=== PATIENT | male | born 2000 | race Two or more races ===

== ENCOUNTER 2021-06-01 20:36 | Inpatient (IN) ==
[2021-06-01] MEDS ORDERED: SODIUM CHLORIDE 0.9% 1000ML 1,000 ML IV STA (21:16)
[2021-06-01] MEDS ORDERED: ONDANSETRON INJ 2 MG/ML 2 ML VIAL IV STA (21:16)
[2021-06-01] MEDS ORDERED: MoRPHine SULFATE 4 MG/ML 1 ML CARP\\VIAL IV STA ×2 (21:16→23:54)
[2021-06-01 21:26] LABS: Basophils # (auto) 0.03 K/uL (0-0.2); Basophils % (auto) 0.3 %; Eosinophils # (auto) 0.43 K/uL (0-0.5); Eosinophils % (auto) 4.8 %; Hematocrit (blood only) 42.4 % (42-52); Immature Granulocytes # (auto) 0.01 K/uL (0.00-0.02); Immature Granulocytes % (auto) 0.1 %; Lymphocytes # (auto) 1.47 K/uL (1.2-3.4); Lymphocytes % (auto) 16.5 %; Mean Corpuscular Hemoglobin 29.4 pg (25-34); Mean Corpuscular Volume 88.9 fL (80-100); Mean Platelet Volume 10.1 fL (7.4-10.4); Monocytes # (auto) 0.99 K/uL (0.11-0.59); Monocytes % (auto) 11.1 %; Neutrophils % (auto) 67.2 %; Platelet Count 321 K/uL (130-400); RDW Coefficient of Variation 13.1 % (11.5-14.5); RDW Standard Deviation 42.6 fL (36.4-46.3); Red Blood Count 4.77 M/uL (4.7-6.1); White Blood Count 8.93 K/uL (4.8-10.8)
--- NOTE | 2021-06-01 21:35 | Emergency Department Note ---
History of Present Illness General Chief complaint: Abdominal Pain Stated complaint: SEVERE ABDOMINAL PAIN ON RIGHT SIDE Time Seen by Provider: 06/01/21 20:49 History of Present Illness Maximum Pain Intensity: 9 20-year-old male who presents to emergency department with complaint of evolving abdominal pain since approximately 10 AM this morning. The patient reports generalized abdominal cramping that has now moved to the right lower quadrant region. The patient reports that he has to bend over because of the pain. He also admits pain with ambulation. Denies any significant pain radiating into the right lower back region, testicle or leg. Patient denies history of inflammatory bowel disease. He does report a history of pancreatic cancer as a child, but does have regular follow-up CT imaging when [place]. The patient currently rates his discomfort a 9 out of 10. He denies any bloody or mucus stools, constipation or diarrhea. He also denies any d ecreased urine output, darkened or bloody urine. Home Medications Medication Instructions Recorded Confirmed Type ibuprofen 200 mg tablet 400 mg PO DIRECTED PRN 06/01/21 06/01/21 History Allergies Allergy/AdvReac Type Severity Reaction Status Date / Time No Known Allergies Allergy Verified 06/01/21 21:14 Past Med/Surg History Medical History Pancreatic cancer Surgical History No significant past surgical history Social History (Updated 06/01/21 @ 21:33 by Deonte Millan) Smoking Status: Current every day smoker marital status: Single current occupational status: student Feels Safe at Home: Yes Review of Systems 10 system review was performed and was negative except for pertinent positives and negatives as indicated in history of present illness Physical Exam Vital Signs Vital Signs - 24 hr 06/01/21 20:43 06/01/21 21:30 Temperature 37.0 C Temperature Source Temporal Artery Scan Pulse Rate 88 Respiratory Rate 20 Respiratory Effort / Characteristics Non-Labored Spontaneous Respiratory Depth Normal Normal Blood Pressure 146/79 H Blood Pressure Mean 101 Pulse Oximetry 97 Oxygen Delivery Method Room Air Sepsis New/Unexplained Change in Mental Status N/A Sepsis Action Taken by Nursing No Action Required CONSTITUTIONAL: Healthy and well nourished. Alert and oriented X 3. Patient appears in mild discomfort. She does not appear toxic. HEENT: No scleral icterus or conjunctival injection/pallor. RESPIRATORY: Clear to auscultation bilaterally with no wheezing, crackles, rhonchi or stridor. CARDIOVASCULAR: Regular rate and rhythm with no murmurs, rubs or gallops. GASTROINTESTINAL: Bowel sounds present in all quadrants. Patient has a positive McBurney's point tenderness and mild Rovsing sign. Negative CVA tenderness. No abdominal rigidity, guarding or rebound. MUSCULOSKELETAL: Full range of motion of all joints without discomfort. INTEGUMENTARY: No rash or other significant dermatologic conditions noted. HEMATOLOGIC: No ecchymosis or petechiae. PSYCHIATRIC: Positive affect. NEUROLOGIC: No focal neurologic deficits noted. Course Course Patient history and physical exam were performed. Nurses notes were reviewed. Vital signs were reviewed, showing a mildly elevated blood pressure. IV access was established, and labs were drawn. The patient was hydrated with a liter of normal saline, and administered IV morphine and Zofran for pain. Review of labs shows a normal CBC, CMP, lipase and urinalysis. CT with IV contrast of the abdomen and pelvis was completed, however radiologist report was delayed. Official radiologist report is pending. Patient care was transferred to Yuli Chowdhury PA-C at change of shift. Please see her dictation for further treatment and final disposition. Administered Medications Discontinued Medications Sodium Chloride (Nss 1000ml) 1,000 mls @ 999 mls/hr IV .Q1H1M STA Stop: 06/01/21 22:16 Last Infusion: 06/01/21 22:15 Dose: 0 mls/hr Documented by: [id number] Admin: 06/01/21 21:30 Dose: 999 mls/hr Documented by: [id number] Ioversol (Optiray 320 100ml) 94 ml IV ONCE ONE Stop: 06/01/21 22:07 Last Admin: 06/01/21 22:06 Dose: 1 ml Documented by: [id number] Morphine Sulfate (Morphine Sulfate 4 Mg/Ml 1 Ml Carp\Vial) 4 mg IV NOW STA Stop: 06/01/21 21:17 Last Admin: 06/01/21 21:29 Dose: 4 mg Documented by: [id number] Morphine Sulfate (Morphine Sulfate 4 Mg/Ml 1 Ml Carp\Vial) 4 mg IV NOW STA Stop: 06/01/21 23:55 Last Admin: 06/02/21 00:08 Dose: 4 mg Documented by: [id number] Ondansetron HCl (Ondansetron Inj 2 Mg/Ml 2 Ml Vial) 4 mg IV NOW STA Stop: 06/01/21 21:17 Last Admin: 06/01/21 21:30 Dose: 4 mg Documented by: [id number] Medical Decision Making Medical Records Attestation: I reviewed the patient's medical records. Home Medications Current Medication List: was personally reviewed by me Laboratory Data Attestation: I reviewed the patient's lab results. Result diagrams: 06/01/21 21:15 06/01/21 21:15 Lab Results 06/01/21 06/01/21 06/01/21 Range/Units 21:15 21:15 21:15 WBC 8.93 (4.8-10.8) K/uL RBC 4.77 (4.7-6.1) M/uL Hgb 14.0 (14.0-18.0) g/dL Hct 42.4 (42-52) % MCV 88.9 (80-100) fL MCH 29.4 (25-34) pg MCHC 33.0 (32-36) g/dL RDW Std Deviation 42.6 (36.4-46.3) fL RDW Coeff of Kaya 13.1 (11.5-14.5) % Plt Count 321 (130-400) K/uL MPV 10.1 (7.4-10.4) fL Immature Gran % (Auto) 0.1 % Neut % (Auto) 67.2 % Lymph % (Auto) 16.5 % [place] % (Auto) 11.1 % Eos % (Auto) 4.8 % Baso % (Auto) 0.3 % Neut # (Auto) 6.00 (1.4-6.5) K/uL Lymph # (Auto) 1.47 (1.2-3.4) K/uL [place] # (Auto) 0.99 H (0.11-0.59) K/uL Eos # (Auto) 0.43 (0-0.5) K/uL Baso # (Auto) 0.03 (0-0.2) K/uL Immature Gran # (Auto) 0.01 (0.00-0.02) K/uL Sodium 138 (136-145) mmol/L Potassium 4.3 (3.5-5.1) mmol/L Chloride 103 (98-107) mmol/L Carbon Dioxide 26 (21-32) mmol/L Anion Gap 9 (3-11) BUN 11 (6-23) mg/dl Creatinine 0.79 (0.6-1.4) mg/dl Est Cr Clr Drug Dosing 137.2 ml/min Est GFR ( Amer) 148.8 ml/min Est GFR (Non-Af Amer) 128.4 ml/min BUN/Creatinine Ratio 13.9 (10-20) Glucose 87 (70-99(Fasting)) mg/dl Calcium 9.9 (8.5-10.1) mg/dl Total Bilirubin 0.5 (0.2-1.0) mg/dl AST 16 (13-39) U/L ALT 20 (7-52) U/L Alkaline Phosphatase 90 (34-104) U/L Total Protein 7.6 (6.0-8.3) gm/dl Albumin 4.8 (3.4-5.0) gm/dl Globulin 2.8 (2.5-4.0) gm/dl Albumin/Globulin Ratio 1.7 (0.9-2) Lipase 17 (11-82) U/L Urine Color Yellow Urine Appearance Clear (Clear) Urine pH 7.0 (4.5-7.5) Ur Specific [place] 1.010 (1.000-1.030) Urine Protein Negative (Negative) Urine Glucose (UA) Negative (Negative) Urine Ketones Negative (Negative) Urine Blood Negative (Negative) Urine Nitrite Negative (Negative) Urine Bilirubin Negative (Negative) Urine Urobilinogen Negative (Negative) Ur Leukocyte Esterase Negative (Negative) Imaging Data Attestation: I personally reviewed and interpreted this imaging study as follows: My Impression: My interpretation of a CT with IV contrast of the abdomen and pelvis is concerning for appendicitis. [facility] radiologist report was pending at the time of transfer of care to Yuli Chowdhury PA-C. Blood Pressure Blood Pressure Findings: Elevated blood pressure Blood Pressure Disposition: elevated BP felt to be situational MDM Narrative Patient presents with classic symptoms consistent with acute appendicitis. My interpretation of CT imaging is suggestive of an acute appendicitis. Official radiology report is currently pending. Laboratory studies are not suggestive of UTI, pancreatitis, cholecystitis or hepatitis. Impression & Plan Acute abdominal pain in right lower quadrant Discharge Plan Visit Data Chief Complaint: Abdominal Pain Stated Complaint: SEVERE ABDOMINAL PAIN ON RIGHT SIDE ED Provider: Jeffrey Vang ED Midlevel Provider: Yuli Chowdhury Discharge Problem: Acute abdominal pain in right lower quadrant Forms Stand Alone Forms: [facility] Smallable Prescriptions Prescriptions: No Action ibuprofen 200 mg Tablet 400 mg PO DIRECTED PRN (Reason: Pain) RF: 0 Referrals Referrals: PCP,NO [Physician] -
[2021-06-01 21:48] LABS: Albumin Globulin Ratio 1.7 (0.9-2); Albumin Level 4.8 gm/dl (3.4-5.0); BUN Creatinine Ratio 13.9 (10-20); Bilirubin,Total 0.5 mg/dl (0.2-1.0); Calcium 9.9 mg/dl (8.5-10.1); Creatinine Clr Calc Pharmacy 137.2 ml/min; Est GFR (African American) 148.8 ml/min; Est GFR (Non-African American) 128.4 ml/min; Globulin 2.8 gm/dl (2.5-4.0); Potassium 4.3 mmol/L (3.5-5.1); Total Protein 7.6 gm/dl (6.0-8.3)
[2021-06-01] MEDS ORDERED: OPTIRAY 320 100ml IV ONE (22:06)
[2021-06-01 23:44] LABS: Appearance Urine Clear (Clear); Bilirubin Urine Negative (Negative); Blood Urine Negative (Negative); Color Urine Yellow; Glucose Urine UA Negative (Negative); Ketones Urine Negative (Negative); Leukocyte Esterase Urine Negative (Negative); Nitrite Urine Negative (Negative); Protein Urine Negative (Negative); Urobilinogen Urine Negative (Negative)
--- NOTE | 2021-06-02 01:30 | Emergency Department Note ---
ED Visit Note Received patient signout from Chad Millan PA-C pending CT result. Concern for acute appendicitis given patient's history and physical exam. Please see his dictation regarding complete history and physical exam completed at the beginning of his stay. Imaging reviewed as noted. Findings concerning for early acute appendicitis. I did speak with Dr. Valdez, who requested I examine the patient prior to his consultation. I did contact him back noting RLQ tenderness over Elizabeth's point, diffuse tenderness and guarding, positive referred tenderness, positive rebound tenderness, positive Rovsing sign. He did agree to evaluate the patient at this time. Please see surgery dictation regarding final disposition and care of this patient. PHYSICAL EXAM: ABDOMEN: Bowel sounds all 4 quadrants, tenderness to palpation, most prominent in the right lower quadrant over McBurney's point. There is right lower quadrant tenderness with palpation of the left lower quadrant. Positive Rovsing sign. Positive rebound tenderness. RADIOLOGY: CT ABDOMEN & PELVIS With Contrast: Mucosal hyperemia within the appendix the appendix not significantly dilated however there is periappendiceal fat stranding and as such findings are consistent with early acute appendicitis. No perforation or abscess. Radiologist: Jesus Contreras MD
[2021-06-02] MEDS ORDERED: cefOXitin 2,000 MG/60 ML BAG IV STA (01:54)
--- NOTE | 2021-06-02 03:10 | History & Physical Report ---
Date of Service June 02, 2021 Assessment & Plan (1) Appendicitis, acute: Plan: Patient has clinically acute appendicitis and radiographically documenting it concern is that his only had symptoms about 4 to 6 hours at most but he is quite tender and rebound therefore I would recommend to proceed with laparoscopic appendectomy possible open Risk and complication were explained to the patient was bleeding infection converting to an open procedure heart attack stroke and he would like to proceed accordingly Also mentioned to the patient that at times will treat with antibiotics and there is a 20% recurrence rate but in his case I am concerned that is evolving f airly quickly with significant tenderness that I would recommend proceeding with surgery rather than attempt antibiotic therapy All question were answered Preop antibiotics ordered Covid test is pending surgery was called permit signed History of Present Illness Chief Complaint: Abdominal pain Primary Care Provider: [facility] This 20-year-old student approximately 6 hours ago started experiencing abdominal pain that started around the umbilical area and went down to the right lower quadrant progressively becoming worse denies any chills or fever or any nausea was evaluated by the ER physicians found to have acute appendicitis documented by CT scan Allergies Allergy/AdvReac Type Severity Reaction Status Date / Time No Known Allergies Allergy Verified 06/01/21 21:14 Home Medications Medication Instructions Recorded Confirmed Type ibuprofen 200 mg tablet 400 mg PO DIRECTED PRN 06/01/21 06/01/21 History Past Med/Surg History Medical History Pancreatic cancer Surgical History No significant past surgical history Social History (Updated 06/01/21 @ 21:33 by Deonte Millan) Smoking Status: Current every day smoker marital status: Single current occupational status: student Feels Safe at Home: Yes Review of Systems Review of Systems: Pretty much unremarkable stating that as a child had pancreatic cancer that was resected in [place] but really has not taken any medicine for it is not diabetic Physical Exam Physical Exam: Alert coherent resting comfortably very thin gentleman Sclera nonicteric conjunctiva noted Neck no cervical lymphadenopathy Lungs clear to auscultation no wheezing Heart regular rate Abdomen positive Rovsing sign exquisite tenderness and rebound in right lower quadrant and McBurney's point A special note is made that I do not see any abdominal scars and on further questioning the patient he is not sure whether what he was told is true or not about pancreatic cancer since it was done in [place] and he was a child Extremity grossly normal Results & Data Results & Data ([facility]) Vital Signs (Past 12 Hours) Vital Signs Temp Pulse Pulse Resp BP BP Pulse Ox 06/02/21 01:00 87 16 133/79 99 06/01/21 20:43 37.0 C 88 20 146/79 H 97 Laboratory Results Noted Diagnostic Findings Reviewed PG Care Time/CCT Total # of Minutes Spent Total Time Spent with Patient: Total time spent is greater than 50% in coordination of care (as documented) at patient's floor/unit and/or counseling patient: Coding Level of Care Code INT OBSERVATION CARE 50M LVL 2 Diagnoses Appendicitis, acute K35.80
[2021-06-02] MEDS ORDERED: fentaNYL citrate 100 MCG/2 ML VIAL ONE ×2 (04:00→05:57)
[2021-06-02] MEDS ORDERED: MIDAZOLAM HCL 1 MG/ML 2ML VIAL ONE (04:00)
[2021-06-02] MEDS ORDERED: LIDOCAINE 1%/EPINEPHRINE 1:100,000 50 ML VIAL ONE (04:16)
--- NOTE | 2021-06-02 04:21 | Anesthesiology Consultation ---
Date of Service June 02, 2021 Assessment & Plan Chart Review Chart Review: Acceptable Risk for Surgery Consults Requested none History Surgery Operation Date: 06/02/21 04:00 Proposed Procedures p Laparoscopic Appendectomy - Craig Valdez MD, FACS Height/Weight Height: 6 ft 3 in Weight: 65.6 kg Allergies Allergy/AdvReac Type Severity Reaction Status Date / Time No Known Allergies Allergy Verified 06/01/21 21:14 Medications Home Medications Medication Instructions Recorded Confirmed Last Taken ibuprofen 200 mg tablet 400 mg PO DIRECTED PRN 06/01/21 06/01/21 06/01/21 16:30 NPO Date Last Intake of Fluids: 06/01/21 Time Last Intake of Fluids: 20:00 Date Last Intake of Solids: 06/01/21 Time Last Intake of Solids: 18:00 Past Medical History Medical History Pancreatic cancer Past Surgical History Surgical History No significant past surgical history Social History Smoking Status: Current every day smoker Physical Exam Vital Signs Last Vital Signs Temp 37.0 C 06/01/21 20:43 Pulse 60 06/02/21 03:19 Resp 16 06/02/21 03:19 BP 114/51 L 06/02/21 03:19 Pulse Ox 99 06/02/21 03:19 Testing Laboratory Results 06/01/21 21:15 06/01/21 21:15 Urine Color Yellow 06/01/21 21:15 Urine Appearance Clear (Clear) 06/01/21 21:15 Urine pH 7.0 (4.5-7.5) 06/01/21 21:15 Ur Specific [place] 1.010 (1.000-1.030) 06/01/21 21:15 Urine Protein Negative (Negative) 06/01/21 21:15 Urine Glucose (UA) Negative (Negative) 06/01/21 21:15 Urine Ketones Negative (Negative) 06/01/21 21:15 Urine Nitrite Negative (Negative) 06/01/21 21:15 Ur Leukocyte Esterase Negative (Negative) 06/01/21 21:15
[2021-06-02] MEDS ORDERED: ONDANSETRON INJ 2 MG/ML 2 ML VIAL IV PRN ×3 (04:30→18:54)
[2021-06-02] MEDS ORDERED: HYDROmorphone INJ 2 MG/ML SYR/VIAL IV PRN ×2 (04:30→05:50)
[2021-06-02] MEDS ORDERED: ePHEDrine sulfate 50 MG/ML AMP IV PRN ×2 (04:30→05:50)
[2021-06-02] MEDS ORDERED: PROMETHAZINE HCL 12.5 MG in SODIUM CHLORIDE 0.9% 50 ML IV PRN ×2 (04:30→05:50)
[2021-06-02] MEDS ORDERED: ATROPINE SULFATE 0.1 MG/ML 10ML SYR IV PRN ×2 (04:30→05:50)
[2021-06-02] MEDS ORDERED: fentaNYL citrate 100 MCG/2 ML VIAL IV PRN (04:30)
[2021-06-02] MEDS ORDERED: PROPOFOL IV EMULSION 10 MG/ML 20 ML VIAL IV ONE (04:53)
[2021-06-02] MEDS ORDERED: ROCURONIUM BROMIDE 10 MG/ML 5 ML VIAL IV ONE (04:53)
[2021-06-02] MEDS ORDERED: LIDOCAINE 2% 2 ML VIAL/AMP(20MG/ML) INFIL ONE (04:53)
[2021-06-02] MEDS ORDERED: GLYCOPYRROLATE 0.2 MG/ML VIAL ONE (04:54)
[2021-06-02] MEDS ORDERED: ONDANSETRON INJ 2 MG/ML 2 ML VIAL ONE (04:54)
[2021-06-02] MEDS ORDERED: NEOSTIGMINE METHYLSULFATE 1 MG/ML 10ML VIAL ONE (04:54)
[2021-06-02] MEDS ORDERED: DEXAMETHASONE SOD INJ 4 MG/ML VIAL ONE (04:54)
--- NOTE | 2021-06-02 05:06 | Post Operative Brief Note ---
PG Immediate Post Op with CF Date of Surgery June 02, 2021 Pre & Post Diagnosis Operation Date: 06/02/21 04:00 Pre-Op Diagnosis: Acute Appendicitis Post-Op Diagnosis: Acute Appendicitis I identified the patient and participated in the time-out.: Yes Procedure Operation Date: 06/02/21 04:00 Actual Procedures p Laparoscopic Appendectomy - Craig Valdez MD, FACS Surgeon Craig Valdez MD, FACS Head [place] 0 Estimated Blood Loss 5 Findings Consistent with Post-Op Diagnosis Specimens Specimen Description: A: Appendix
--- NOTE | 2021-06-02 05:20 | Operative Report ---
Post Operative Report Pre & Post Diagnosis Operation Date: 06/02/21 04:00 Pre-Op Diagnosis: Acute Appendicitis Post-Op Diagnosis: Acute Appendicitis I identified the patient and participated in the time-out.: Yes Procedure Operation Date: 06/02/21 04:00 Actual Procedures p Laparoscopic Appendectomy - Craig Valdez MD, FACS The patient was brought into the operating theater supine position general trach anesthesia systemic antibiotics on board timeout was had patient was identified made a small incision supraumbilically sufficient for Veress needle followed by CO2 followed by 5 mm trocar point of entry spectrin no injury identified direct visualization we placed a 5 mm right upper quadrant port with preemptive local analgesic and we were able to elevate the cecum could not identify specifically the tip of the appendix but the base seemed to be grossly normal this point we converted the 5 mm umbilical port by placing the insufflator right upper quadrant port and under direct visualization we enlarged the incision and placed a 12 mm port in the umbilical trocar site then we will place the 5 mm left lower quadrant direct visualization camera was placed in left lower quadrant patient laterally rotated to the left we then were able to identify the appendix which had some peritoneal attachments down towards its tip which created the base created a window between the cecum and the appendix mesenteric and used a blue HUBER was fired across the base taken to attempt off the cecum and we went through the mesentery of the appendix the mesoappendix with 5 mm clips were secure and as we went along the tip of the appendix is slightly more dilated appeared hyperemic but there is no fibrinous exudate and no inflammatory changes noted d own under the gutter once the appendix was removed we placed in an Endopouch and took it out intact through the umbilical port at this point we irrigated the right lower quadrant and visualized the operative field there was no bleeding associated there was a slight bleeder minimal on the staple line on the cecum we touched with a 25 cautery and just gently. And under direct visualization the camera was placed in the right upper quadrant visualize the left lower quadrant port and took that out and then visualize the umbilical port and took that out and finally the right upper quadrant port was removed fascial stitch 0 Vicryl [id number] x2 for was to the local area and all 4-0 Monocryl subcuticular Steri-Strips applied procedure was tolerated well by the patient estimate blood loss 5 cc Surgeon Craig Valdez MD, FACS Sewing Machine Operator Zipper 0 Estimated Blood Loss 5 Findings Consistent with Post-Op Diagnosis Acute nonruptured appendix Specimens Appendix Drains None Complications None Indications Acute appendicitis Description of Procedure merda I attest to the content of the Intraoperative Record and any orders documented therein. Any exceptions are noted below.
[2021-06-02] MEDS ORDERED: KETOROLAC 30 MG/ML VIAL ONE (05:49)
[2021-06-02] MEDS ORDERED: KETOROLAC 30 MG/ML VIAL IV PRN (05:50)
--- NOTE | 2021-06-02 05:52 | Anesthesiology Progress Note ---
Date of Service June 02, 2021 Anesthesia Post Procedure Vital Signs Vital Signs: Temp Pulse Pulse Pulse Resp BP BP 06/02/21 05:40 49 L 18 117/70 06/02/21 05:30 46 L 16 115/58 L 06/02/21 05:21 36.0 C L 71 20 115/66 06/02/21 03:19 60 16 06/02/21 01:00 87 16 06/01/21 20:43 37.0 C 88 20 146/79 H BP Pulse Ox 06/02/21 05:40 100 06/02/21 05:30 100 06/02/21 05:21 99 06/02/21 03:19 114/51 L 99 06/02/21 01:00 133/79 99 06/01/21 20:43 97 Pain Intensity Right Lower Abdomen: Pain Intensity: 8 Transfer of Care Handoff Completed per policy Notes Mental Status: alert / awake / arousable and participated in evaluation Patient Amnestic to Procedure: Yes Nausea / Vomiting: adequately controlled Pain: adequately controlled Airway Patency, RR, SpO2: stable & adequate BP & HR: stable & adequate Hydration State: stable & adequate Anesthetic Complications: no major complications apparent
[2021-06-02] MEDS: fentaNYL citrate 100 MCG/2 ML VIAL IV PRN ×2 (05:57→06:02)
--- NOTE | 2021-06-02 08:32 | CT Scan Report ---
ABDOMEN AND PELVIS CT WITH IV CONTRAST CT DOSE: 294.79 mGy.cm HISTORY: Right lower quadrant abdominal pain. TECHNIQUE: Multiaxial CT images of the abdomen and pelvis were performed following the use of intrave nous contrast. A dose lowering technique was utilized adhering to the principles of ALARA. COMPARISON STUDY: None. FINDINGS: The lung bases are clear. No pneumoperitoneum. No pneumatosis. No fractures within the visu alized osseous structures. The liver, gallbladder, spleen, adrenal glands, pancreas, and kidneys are unremarkable. The main portal vein is patent. No retroperitoneal lymphadenopathy. Normal caliber abdo emil aorta. The bladder is unremarkable. No evidence for bowel obstruction. The appendix is slightly distended up to 7 mm and demonstrates a thickened wall and mild periappendiceal fat stranding. There fore, this likely represents an early acute appendicitis. IMPRESSION: 1. Above findings likely represent an early acute appendicitis. Surgical consultation recommended. 2. No evidence for bowel obstruction. 3. No perforation or abscess identified ACT 112: Negative or not required by law. Electronically signed by: Edvin Nicolas M.D. 06/02/2021 8:31 AM
[2021-06-02] MEDS: oxyCODONE/ACETAMINOPHEN 5mg/325mg TAB PO PRN ×2 (09:25→13:48)
--- NOTE | 2021-06-02 09:49 | Surgery Progress Note ---
Date of Service June 02, 2021 Assessment & Plan (1) Appendicitis, acute: Plan: POD#0 laparoscopic appendectomy Pending pain control and tolerating of diet he may be discharged to home later today F/u with Dr. Valdez in clinic within 1 week Admission and Anticipated Discharge Date Admission Date: June 02, 2021 Subjective Patient seen, having some post surgical discomfort. Still drowsy from recent surgery. Physical Exam Physical Exam: drowsy, complaining of pain Gastrointestinal (Abdomen): Inspection/Auscultation: + abdominal surgical incision (c/d/i with steri-strips in place) Percussion/Palpation: + abdomen tender (expected bert-incisional discomfort) and abdomen soft Results & Data ([facility]) Vital Signs (Past 12 Hours) Vital Signs Temp Pulse Pulse Pulse Pulse Resp BP 06/02/21 09:25 36.8 C 87 16 100/55 L 06/02/21 08:28 51 L 18 111/65 06/02/21 07:26 56 L 16 94/56 L 06/02/21 06:56 73 18 112/54 L 06/02/21 06:38 36.9 C 52 L 18 110/63 06/02/21 06:20 54 L 16 118/61 06/02/21 06:10 36.2 C L 52 L 14 113/69 06/02/21 06:00 48 L 12 108/65 06/02/21 05:50 54 L 14 118/64 06/02/21 05:40 49 L 18 117/70 06/02/21 05:30 46 L 16 115/58 L 06/02/21 05:21 36.0 C L 71 20 115/66 06/02/21 03:19 60 16 06/02/21 01:00 87 16 BP Pulse Ox 06/02/21 09:25 99 06/02/21 08:28 97 06/02/21 07:26 95 06/02/21 06:56 98 06/02/21 06:38 97 06/02/21 06:20 95 06/02/21 06:10 96 06/02/21 06:00 98 06/02/21 05:50 100 06/02/21 05:40 100 06/02/21 05:30 100 06/02/21 05:21 99 06/02/21 03:19 114/51 L 99 06/02/21 01:00 133/79 99 PG Care Time/CCT Total # of Minutes Spent Total Time Spent with Patient: Total time spent is greater than 50% in coordination of care (as documented) at patient's floor/unit and/or counseling patient: Coding Level of Care Code None Diagnoses Appendicitis, acute K35.80
[2021-06-02] MEDS ORDERED: KETOROLAC TROMETHAMINE 15 MG/ML VIAL IV ONE (16:39)
[2021-06-02] MEDS ORDERED: oxyCODONE HCL IR 5 MG TAB (IMMEDIATE RELEASE) PO PRN (16:47)
[2021-06-02] MEDS ORDERED: ACETAMINOPHEN 1000 MG/100 ML IV IV PRN (16:47)
--- NOTE | 2021-06-02 16:57 | Communication Note ---
Date of Service: June 02, 2021 Patient is POD#0 laparoscopic appendectomy. Could have been discharged from PACU, however we admitted him under observation to med/surg given the time of d ay and weather. Upon check up patient complaining of some bert-incisional discomfort, mostly around belly button. He has been medicated with prn percocet with some relief, but saying the pills make him dizzy. He has been sleeping intermittently and in no acute distress. Vital signs are stable. He has tolerated about half a sandwich. Nursing trying to encourage ambulation. Saw patient again with Dr. Valdez and incisions c/d/i and abdomen is soft. Patient overall stable for discharge to home, however he is requesting to stay as he does not feel comfortable leaving due to pain level. Girlfriend in the room with patient. Will order a dose of IV toradol in addition to splitting up the percocet into plain oxycodone and PRN IV tylenol to see if this helps the patient's symptoms. If he does well he may still discharge to home tonight.
[2021-06-02] MEDS ORDERED: KETOROLAC TROMETHAMINE 15 MG/ML VIAL IV PRN (23:00)
--- NOTE | 2021-06-02 23:01 | Communication Note ---
Date of Service: June 02, 2021 I was called by nurse this patient was experiencing a throbbing/pulsating pain at his surgical incision. Due to this I visited with the patient at bedside he reported pain most significantly at his right upper quadrant incision. All the patient's incisions were inspected and noted to be clean, dry, and intact. Patient did have the expected postoperative pain at his surgical incisions. I suspect the patient is having increased pain as the local anesthetic used intraoperatively is likely wearing off. The treating nurse did treat him with oral oxycodone. She offered the patient intravenous acetaminophen which she declined but I encouraged him to take this medication and he is now agreeable. In addition I will order intravenous Toradol 15 mg intravenously every 6 hours as needed for pain.
--- NOTE | 2021-06-03 06:46 | Surgery Progress Note ---
Date of Service June 03, 2021 Assessment & Plan (1) Appendicitis, acute: Plan: POD#1 status post lap appendectomy We will plan to discharge the patient instructions were given to him regarding activity diet and meds and follow-up in our office in approximately 1 week All questions answered As far as pain management at this time some Tylenol or Advil or Motrin should be sufficient POD#0 laparoscopic appendectomy Pending pain control and tolerating of diet he may be discharged to home later today F/u with Dr. Valdez in clinic within 1 week Admission and Anticipated Discharge Date Admission Date: June 02, 2021 Subjective Feels better this morning would like to go home Physical Exam Physical Exam: Alert coherent comfortable complaining of minimal discomfort right upper quadrant trocar site The abdomen is completely benign Steri-Strips are intact there is no ecchymosis around the trocar sites Results & Data ([facility]) Vital Signs (Past 12 Hours) Vital Signs Temp Pulse Resp BP Pulse Ox 06/02/21 20:48 37 C 54 L 18 101/55 L 100 PG Care Time/CCT Total # of Minutes Spent Total Time Spent with Patient: Total time spent is greater than 50% in coordination of care (as documented) at patient's floor/unit and/or counseling patient: Coding Level of Care Code None Diagnoses Appendicitis, acute K35.80
--- NOTE | 2021-06-04 13:15 | Discharge Summary ---
Date of Service June 04, 2021 Admission HPI Per Admitting Provider This 20-year-old student approximately 6 hours ago started experiencing abdominal pain that started around the umbilical area and went down to the right lower quadrant progressively becoming worse denies any chills or fever or any nausea was evaluated by the ER physicians found to have acute appendicitis documented by CT scan Principal Diagnosis acute appendicitis Discharge Exam awake/alert Gastrointestinal (Abdomen) Inspection/Auscultation: + abdominal surgical incision (c/d/i) Percussion/Palpation: + abdomen tender (expected bert-incisional discomfort) and abdomen soft Discharge Data Allergies Allergy/AdvReac Type Severity Reaction Status Date / Time No Known Allergies Allergy Verified 06/01/21 21:14 Consultations 06/02/21 01:14 Consult General Surgery Stat Procedures Performed Operation Date: 06/02/21 04:00 Actual Procedures p Laparoscopic Appendectomy - Craig Valdez MD, FACS Ordered Studies 06/01/21 21:16 CT abd pelvis IV con only Stat Hospital Course (1) Appendicitis, acute: This is a 20yM who presented to the [facility] ED on 06/02/21 with abdominal pain. Workup in the ED showed a WBC of 8.[address] a/p concerning for acute appendicitis. The patient was tender to palpation in the RLQ. Patient made NPO with IVF and booked for the OR. In the early AN if 06/02 the patient went to the OR with Dr. Valdez for a laparoscopic appendectomy. The patient tolerated the procedure well, see operative report for full details. Post operatively the patient's diet was advanced, pain managed on prn meds, and incisions clean/dry/intact. He ended up remaining admitted overnight for pain control. His medications were adjusted and Toradol added with relief. On POD#1 the patient was deemed stable for discharge to home. Plans to follow up in clinic with Dr. Valdez in 1 week. Total Time Total Time Spent Total Time Spent (In Minutes): 10 Discharge Plan Discharge Items Patient Disposition: Home - Self-Care Reason For Visit: POST OP Discharge Diagnosis: laparoscopic appendectomy Activity: Per Instructions section Lifting: No more than 10 pounds Bathing Comment: may shower starting 06/03/21; no soaking in tubs/pools Exercise/Sports: Wait until after follow-up appointment Driving/Machine Use: no driving while taking narcotics for pain Non-emergency contact: Surgeon Call non-emergency contact if: you have any medication questions, your symptoms worsen, your pain is not controlled, your pain is concerning for you, you have a fever, your temperature is above 101.5, your wound has increased redness, your wound has increased drainage and your wound pain has increased Follow-up/Referrals: Craig Valdez MD, FACS [Surgeon] - 06/11/21 2:30 pm (Please call to schedule follow up in clinic within 1 week) PCP,NO [Physician] - Diet: Regular Addtl Attending Provider Instructions: You have small white bandages over your incisions called steri-strips. You may shower with these on. They will tend to fall off on their own within 7-10 days. You may purchase Ibuprofen over the counter if needed for additional pain control over the next couple of days. Take with food. Pending Studies at Discharge: Yes Studies:: surgical pathology Stand-Alone Forms: My [facility], Smoking Cessation, Virtual Emergency Department, Important Visit Information Medications and DC Order Prescriptions: New oxycodone-acetaminophen [Percocet] 5-325 mg tablet 1 - 2 tab PO .q4-6h PRN (Reason: pain, for initial therapy, max 6 tabs per day) Qty: 10 RF: 0 Continued ibuprofen 200 mg Tablet 400 mg PO DIRECTED PRN (Reason: Pain) RF: 0 Discharge Orders: Discharge Order (Routine); Ordered 06/03/21 Ordered By: Anabell Murphy Admission Data Admit Date/Time: 06/02/21 05:24 Attending Provider: Criag Valdez Admit Provider: Craig Valdez Primary Care Provider: [facility] Other Providers: Craig Valdez Other Interventions: Discharge Summary Assessment (RN) Last Done: 06/03/21 08:15 Coding Level of Care Code D/C DAY MANAGEMENT <30 MINS Diagnoses Appendicitis, acute K35.80
== END 2021-06-03 10:38 | disposition home or self-care (01) | DRG 343 ==
LOC: ED 20:36 → OR 06-02 03:40 → 3E 06-02 05:24
DX: K35.80 Unspecified acute appendicitis